=== PATIENT | female | born 1985 | race Caucasian/White ===

== ENCOUNTER 2017-10-07 23:52 | Emergency (ER) | payer OTHER ==
[~2017-10-07] VITALS: Ht 165.1 cm; Wt 67.2 kg
[~2017-10-07 23:52] MED LIST: FIORICET WI1 CAPSULE PO; PREDNISONE50 MG PO; REGLAN10 MG PO
[2017-10-08 00:40] LABS: HEMATOCRIT 36.7 % (36.0-46.0); MCH 26.5 PG (29.0-34.0); MCHC 32.7 G/DL (30.0-36.0); PLATELET COUNT 221 K/uL (156-360); RBC DIS.WIDTH-CV 13.9 % (11.8-14.6); RBC DIS.WIDTH-SD 40.7 % (39-53); RED BLOOD COUNT 4.53 M/uL (3.80-5.20); WHITE BLOOD COUNT 9.5 K/uL (4.1-10.2)
[2017-10-08 00:48] LABS: APPEARANCE CLEAR ((CLEAR)); BILIRUBIN NEGATIVE; BLOOD NEGATIVE; COLOR STRAW ((YELLOW)); GLUCOSE (STRIP) NEGATIVE; KETONES NEGATIVE; LEUKOCYTES NEGATIVE; NITRITE NEGATIVE; PROTEIN (STRIP) NEGATIVE; SPECIFIC GRAVITY 1.008 (1.000-1.030); UCUL ADDED? NO; UROBILINOGEN 0.2 MG/DL (0.2-1.0)
[2017-10-08 00:49] LABS: ALBUMIN 4.4 g/dL (3.2-4.8); CHLORIDE 105 mEq/L (99-109); POTASSIUM 3.7 mEq/L (3.7-5.4); SODIUM 140 mEq/L (136-147)
[2017-10-08 00:51] LABS: GLUCOSE 90 mg/dL (70-99)
[2017-10-08 00:52] LABS: TOTAL PROTEIN 7.9 g/dL (6.4-8.3)
[2017-10-08 00:53] LABS: TOTAL BILIRUBIN 0.2 mg/dL (0.0-1.0)
[2017-10-08 00:55] LABS: ALKALINE PHOSPHATASE 62 IU/L (3-129); CREATININE 1.2 mg/dL (0.6-1.3); GFR ESTIMATE (CALCULATED) 56 mL/min/
[2017-10-08 00:56] LABS: UREA NITROGEN (BUN) 17 mg/dL (9-23)
[2017-10-08 00:57] LABS: AST (GOT) 17 IU/L (2-34)
[2017-10-08 00:58] LABS: ALT (GPT) 11 IU/L (3-49); LIPASE 66 U/L (1.0-51.0)
[2017-10-08 01:04] LABS: QUANTITATIVE HCG < 4.0 MIU/ML
[2017-10-08] MEDS ORDERED: ZANTAC150 MG PO (05:06)
[2017-10-08 05:35] VITALS: BP 136/50
== END 2017-10-08 05:36 | disposition home or self-care (01) ==
LOC: EME 23:52
DX: K21.9 Gastro-esophageal reflux disease without esophagitis (principal); Z87.442 Personal history of urinary calculi
CPT/HCPCS: 80053; 81003; 83690; 84702; 85027; 99281; 99284